=== PATIENT | female | born 1990 | race Caucasian/White ===

== ENCOUNTER → 2021-03-22 10:12 | Outpatient (CLI) | payer OTHER, SELFPAY ==
--- NOTE | ~2021-03-22 | XR_ITS ---
EXAMINATION: XR knee RT 3V DATE: 03/22/2021 10:55 INDICATION: Right knee pain. TECHNIQUE: 4 views of right knee were obtained. COMPARISON: None. FINDINGS: Bone alignment is normal. No fracture. There is mild osteoarthritis of medial and patellofe moral compartments characterized by tiny marginal osteophytes. No knee joint effusion. IMPRESSION: 1. Mild right knee osteoarthritis. Reviewed, dictated and finalized at location A.
--- NOTE | ~2021-03-22 | XR_ITS ---
XR hip RT 2V w AP pelvis DATE: 03/22/2021 10:58 INDICATION: Right hip pain. TECHNIQUE: AP pelvis. AP and lateral views of right hip. COMPARISON: None FINDINGS: No pelvic fracture or bone destruction. The pubic symphysis and sacroiliac joints are intac t. No fracture, dislocation, avascular necrosis or bone destruction of the right hip. Hip joint spaces a ppear symmetric and preserved. IMPRESSION: No significant abnormality Reviewed, dictated and finalized at location A. IMPRESSION: No significant abnormality
--- NOTE | ~2021-03-22 | XR_ITS ---
XR shoulder RT min 2V DATE: 03/22/2021 10:57 INDICATION: Right shoulder pain no injury. TECHNIQUE: 4 views COMPARISON: None FINDINGS: No fracture or dislocation, periosteal reaction or bone destruction or abnormal soft tissue calcification. IMPRESSION: Negative examination Reviewed, dictated and finalized at location A. IMPRESSION: Negative examination
== END ==
PROVIDERS: PCP Nurse Practitioner Family; Visit Provider Nurse Practitioner Family
DX: M25.551 Pain in right hip (principal); M25.511 Pain in right shoulder; M17.11 Unilateral primary osteoarthritis, right knee
CPT/HCPCS: 73030; 73502; 73562

== ENCOUNTER 2021-09-12 10:41 | Emergency (ER) | payer OTHER, SELFPAY ==
[2021-09-12 10:52] VITALS: BP 129/73; PULSE 98; RESP 16; TEMP 37.1; O2SAT 99
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
== END 2021-09-12 11:16 | disposition home or self-care (01) ==
PROVIDERS: Emergency Provider Nurse Practitioner Family; PCP Nurse Practitioner Family
DX: J02.9 Acute pharyngitis, unspecified (principal); Z20.818 Contact with and (suspected) exposure to other bacterial communicable diseases; F17.200 Nicotine dependence, unspecified, uncomplicated; F41.9 Anxiety disorder, unspecified
CPT/HCPCS: 87081; 87880; 99213; G0463